=== PATIENT | male | born 1970 | race Caucasian/White ===

== ENCOUNTER 2020-03-26 20:44 | Emergency (ER) | payer MEDICAID, OTHER ==
[~2020-03-26] VITALS: Ht 172.7 cm; Wt 65.8 kg
--- NOTE | 2020-03-26 21:04 | NUR ---
CALLED PT IN WAITING ROOM X3. NO ONE RESPONDED. WILL FOLLOW UP.
--- NOTE | 2020-03-26 21:15 | NUR ---
CALLED PT IN WR X3 . NO ONE RESPONDED. WILL FOLLOW UP.
[2020-03-26 21:40] VITALS: BP 153/87
== END 2020-03-26 21:50 | disposition home or self-care (01) ==
LOC: ER 20:52
DX: H10.89 Other conjunctivitis (principal); B99.8 Other infectious disease

== ENCOUNTER 2020-07-31 18:25 | Emergency (ER) | payer OTHER, MEDICAID ==
[~2020-07-31] VITALS: Ht 172.7 cm; Wt 86.2 kg
[2020-07-31 18:43] VITALS: BP 142/85
--- NOTE | 2020-07-31 18:44 | NUR ---
[email or web address], needs medical clearance for boooking, c/o right arm pain, per report trying to break in and R arm got caught in a balcony decor 07/24, to er bed 10, hooked to monitor, changed to hosp gown, warm blanket provided, patient aao X 3, awaiting Md butler
--- NOTE | 2020-07-31 18:48 | NUR ---
RECORD TESTER Degrasse at bedside
[2020-07-31] MEDS ORDERED: ACETAMINOPHEN ES 500 MG TABLET PO ONE (19:00)
[2020-07-31] MEDS ORDERED: ACETAMINOPHEN ES 500 MG TABLET ONE (19:20)
--- NOTE | 2020-07-31 19:34 | NUR ---
REPORT GIVEN TO DANIEL LESLIE FOR DARIEN
--- NOTE | 2020-07-31 19:49 | NUR ---
PT MEDICALLY CLEARED FOR INCARCERATION. Written and verbal after care instructions given. Patient verbalizes understanding of instruction. Pt ambulatory w/ steady gait
== END 2020-07-31 20:05 ==
LOC: ER 18:29
DX: S50.01XA Contusion of right elbow, initial encounter (principal); Z02.89 Encounter for other administrative examinations; Z59.0 Homelessness; W23.0XXA Caught, crushed, jammed, or pinched between moving objects, initial encounter; Y93.89 Activity, other specified; Y92.89 Other specified places as the place of occurrence of the external cause; Y99.8 Other external cause status
CPT/HCPCS: 73080-TC